=== PATIENT | female | born 1950 | race Caucasian/White ===

== ENCOUNTER 2019-02-04 09:00 | Outpatient (CLI) | payer MEDICARE, MEDICAID | END 2019-02-04 10:00 | disposition home or self-care (01) | LOC: D.MAMMO 09:00 | PROVIDERS: ATTEND Family Medicine | DX: Z90.12 Acquired absence of left breast and nipple (principal) ==

== ENCOUNTER 2019-11-12 09:45 | Outpatient (CLI) | payer MEDICARE, MEDICAID | END 2019-11-12 10:00 | disposition home or self-care (01) | LOC: D.MAMMO 09:45 | PROVIDERS: ATTEND Family Medicine | DX: Z12.31 Encounter for screening mammogram for malignant neoplasm of breast (principal) ==